=== PATIENT | male | born 1955 | race Caucasian/White ===

== ENCOUNTER 2018-01-03 07:10 | Day surgery (SDC) | payer MEDICAID ==
[2018-01-03] MEDS ORDERED: DIPHENHYDRAMINE INJ 50 MG/ML VIAL ONE (07:23)
[2018-01-03] MEDS ORDERED: MEPERIDINE HCL/PF 100 MG/ML AMP ONE (07:24)
[2018-01-03] MEDS ORDERED: SIMETHICONE 40 MG/0.6 ML ML ONE (07:24)
[2018-01-03] MEDS: MIDAZOLAM HCL 5 MG/5 ML VIAL ONE ×3 (08:46→08:58)
[2018-01-03 11:48] VITALS: BP_SYST 101
== END 2018-01-03 11:25 | disposition home or self-care (01) ==
LOC: SDS 07:10 → SMU 07:10 → SDS 11:25
PROVIDERS: ATTEND Internal Medicine Gastroenterology
DX: D12.4 Benign neoplasm of descending colon (principal); K63.5 Polyp of colon; K62.1 Rectal polyp; K57.30 Diverticulosis of large intestine without perforation or abscess without bleeding; K64.8 Other hemorrhoids; Z86.010 Personal history of colon polyps; J44.9 Chronic obstructive pulmonary disease, unspecified; K76.0 Fatty (change of) liver, not elsewhere classified; Z85.828 Personal history of other malignant neoplasm of skin; Z79.899 Other long term (current) drug therapy; K21.9 Gastro-esophageal reflux disease without esophagitis; Z85.038 Personal history of other malignant neoplasm of large intestine
CPT/HCPCS: 45380; 45385; 88305; J1200; J2175; J2250; 45384

== ENCOUNTER 2018-02-14 16:57 | Inpatient (IN) | payer MEDICAID ==
[~2018-02-14] VITALS: Ht 177.8 cm; Wt 64.0 kg
[2018-02-14 17:06] VITALS: BP_SYST 103
[2018-02-14 17:52] LABS: HEMATOCRIT 27.7 % (36-54); HEMOGLOBIN 8.9 g/dL (14.0-18.0); MEAN CORPUSCULAR HEMOGLOBIN 36 pg (27-31); MEAN CORPUSCULAR HGB CONC 32 % (32-36); MEAN CORPUSCULAR VOLUME 114 fL (79.0-98.0); PLATELET COUNT (AUTO) 238 K/uL (130-430); RED BLOOD CELL COUNT(AUTO) 2.44 MIL/uL (4.2-6.2); WHITE BLOOD COUNT (AUTO) 14.5 K/uL (4.8-10.8)
[2018-02-14 17:54] LABS: CALCIUM 8.5 mg/dL (8.4-11.0); CREATININE 0.83 mg/dL (0.55-1.30)
[2018-02-14 17:57] LABS: BAND % (MANUAL) 1 % (0-6); BASOPHILS % (MANUAL) 0 % (0-2); EOSINOPHILS % (MANUAL) 0 % (0-7); LYMPHOCYTES % (MANUAL) 16 % (20-46); METAMYELOCYTES % 2 % (0-0); MONOCYTES % (MANUAL) 3 % (0-11); POTASSIUM 2.4 mmol/L (3.5-5.1)
[2018-02-14 17:58] LABS: INR 1.3 (0.80-1.20); PROTHROMBIN TIME 13.4 SECS (9.5-12.5)
[2018-02-14 18:05] LABS: ALBUMIN 2.2 g/dL (3.4-4.8)
[2018-02-14] MEDS ORDERED: KCL 20 mEq in 100 mL (PREMIX) 100 ML IV ONE ×2 (18:45→23:13)
[2018-02-14] MEDS ORDERED: IPRATROPIUM/ALBUTEROL SULFATE 3 ML AMPUL.NEB (DUONEB) INH PRN (19:45)
[2018-02-14] MEDS ORDERED: NACL 0.9% 1,000 ML IV ONE (19:45)
[2018-02-14] MEDS ORDERED: ONDANSETRON HCL 4 MG/2 ML VIAL IVP PRN (19:45)
[2018-02-14] MEDS ORDERED: KCL 20 mEq in NS 1000 mL 1,000 ML IV ONE (19:45)
[2018-02-14] MEDS ORDERED: KCL 40 mEq in 100 mL (PREMIX) 100 ML IV ONE (19:45)
[2018-02-14] MEDS ORDERED: ACETAMINOPHEN 325 MG TABLET PO PRN (19:45)
[2018-02-14] MEDS ORDERED: TRAZ-123 PO (19:50)
[2018-02-14] MEDS ORDERED: NICO-680 TD (19:50)
[2018-02-14] MEDS ORDERED: FAMO20TA8 PO (19:50)
[2018-02-14] MEDS ORDERED: FLUT16SP16 NS (19:50)
[2018-02-14] MEDS ORDERED: IPRA3AMP9 INH (19:50)
[2018-02-14] MEDS ORDERED: MONT10TA25 PO (19:50)
[2018-02-14] MEDS ORDERED: UMEC62.5 IH (19:50)
[2018-02-14] MEDS ORDERED: KCL 20 mEq in 100 mL (PREMIX) 100 ML IV SCH (20:15)
[2018-02-14 20:53] VITALS: BP_SYST 108
[2018-02-14 23:40] VITALS: BP_SYST 108
[2018-02-15] MEDS ORDERED: NACL 0.9% 1,000 ML IV ONE (00:30)
[2018-02-15] MEDS ORDERED: PIPERACILLIN/TAZOBACTAM 3.375 GM/VIAL (ZOSYN) IV ONE (00:55)
[2018-02-15] MEDS ORDERED: PIPERACILLIN/TAZO 3.375/DEX-IS 50 ML IV SCH (01:00)
[2018-02-15 01:52] VITALS: BP_SYST 110
[2018-02-15 02:24] LABS: BILIRUBIN,URINE 1+ (NEGATIVE); BLOOD, URINE 2+ (NEGATIVE); CLARITY/URINE CLEAR (CLEAR); COLOR,URINE YELLOW (YELLOW); GLUCOSE,URINE NEGATIVE (NEGATIVE); KETONES,URINE TRACE (NEGATIVE); LEUKOCYTE ESTERASE ,URINE NEGATIVE (NEGATIVE); NITRITE, URINE NEGATIVE (NEGATIVE); PH,URINE 6.5 (5.0-8.0); PROTEIN URINE NEGATIVE (NEGATIVE)
[2018-02-15 03:33] LABS: BACTERIA,URINE FEW /HPF (None Seen); WBC,URINE 0-3 /HPF (0-3)
[2018-02-15] MEDS: PIPERACILLIN/TAZO 3.375/DEX-IS 50 ML IV SCH ×4 (06:52→23:44)
[2018-02-15 07:00] LABS: BASOPHILS % (AUTO) 0.2 % (0.0-2.0); EOSINOPHILS % (AUTO) 0.4 % (0.0-4.0); LYMPHOCYTES # (AUTO) 1.8 K/uL (1.0-5.5); LYMPHOCYTES % (AUTO) 18.7 % (20.5-51.5); MEAN CORPUSCULAR HEMOGLOBIN 38 pg (27-31); MEAN CORPUSCULAR HGB CONC 34 % (32-36); MEAN CORPUSCULAR VOLUME 112 fL (79.0-98.0); MONOCYTES # (AUTO) 0.8 K/uL (0.0-1.0); MONOCYTES % (AUTO) 8.1 % (1.7-9.3); NEUTROPHILS # (AUTO) 6.8 K/uL (1.8-7.7); NEUTROPHILS % (AUTO) 72.6 % (40.0-70.0); PLATELET COUNT (AUTO) 159 K/uL (130-430); RED CELL DISTRIBUTION WIDTH 16.4 % (9.0-15.0); WHITE BLOOD COUNT (AUTO) 9.4 K/uL (4.8-10.8)
[2018-02-15 07:13] LABS: CALCIUM 7.1 mg/dL (8.4-11.0); CREATININE 0.74 mg/dL (0.55-1.30); RED BLOOD CELL COUNT(AUTO) 1.84 MIL/uL (4.2-6.2)
[2018-02-15 07:18] LABS: HEMATOCRIT 20.6 % (36-54); HEMOGLOBIN 6.9 g/dL (14.0-18.0)
[2018-02-15 07:22] LABS: ALBUMIN 1.6 g/dL (3.4-4.8); TOTAL BILIRUBIN 2.8 mg/dL (0.0-1.0)
[2018-02-15 07:32] LABS: POTASSIUM 2.2 mmol/L (3.5-5.1)
[2018-02-15 08:00] VITALS: BP_SYST 112
[2018-02-15] MEDS: POTASSIUM CHLORIDE 40 MEQ in NS 250 ML IV SCH ×2 (08:55→14:14)
[2018-02-15] MEDS ORDERED: traZODone HCL 50 MG TABLET (DESYREL) PO SCH (09:00)
[2018-02-15] MEDS ORDERED: NON-FORMULARY MEDICATION MC SCH (09:00)
[2018-02-15] MEDS: FLUTICASONE PROPIONATE 50 mCg/SPRAY 16 GM NS SCH (09:00)
[2018-02-15 09:19] LABS: HEMATOCRIT 20.6 % (36-54)
[2018-02-15] MEDS ORDERED: LIPASE/PROTEASE/AMYLASE 1 CAP PO ONE (10:00)
[2018-02-15] MEDS: PANTOPRAZOLE SODIUM 40 MG/VIAL (PROTONIX) IVP SCH (10:02)
[2018-02-15] MEDS: FAMOTIDINE 20 MG TABLET PO SCH (10:03)
[2018-02-15] MEDS: MORPHINE 4 MG/ML INJ. SYRINGE IVP PRN ×2 (10:03→22:02)
[2018-02-15] MEDS: NICOTINE 7 MG/24 HR PATCH.TD24 TD SCH (10:16)
[2018-02-15 10:37] LABS: TOTAL IRON BIND. CAPACITY 120 ug/dL (250-450)
[2018-02-15 12:00] VITALS: BP_SYST 108
[2018-02-15 16:00] VITALS: BP_SYST 105
[2018-02-15] MEDS: MONTELUKAST 10 MG TABLET PO SCH (17:52)
[2018-02-15] MEDS: LIPASE/PROTEASE/AMYLASE 1 CAP PO SCH (17:53)
[2018-02-15 20:00] VITALS: BP_SYST 115
[2018-02-15 20:48] LABS: INR 1.6 (0.80-1.20); PROTHROMBIN TIME 15.7 SECS (9.5-12.5)
[2018-02-15] MEDS ORDERED: KCL 40 mEq in 100 mL (PREMIX) 100 ML IV ONE ×2 (21:15→21:42)
[2018-02-15] MEDS ORDERED: MAGNESIUM SULFATE 50 ML IV ONE (21:15)
[2018-02-15] MEDS ORDERED: POTASSIUM CHLORIDE 40 MEQ in NS 250 ML IV ONE (21:30)
[2018-02-15 23:51] VITALS: BP_SYST 110
[2018-02-16] MEDS: MORPHINE 4 MG/ML INJ. SYRINGE IVP PRN ×3 (02:22→17:15)
[2018-02-16] MEDS: PIPERACILLIN/TAZO 3.375/DEX-IS 50 ML IV SCH (05:02)
[2018-02-16 07:14] LABS: BASOPHILS # (AUTO) 0.1 K/uL (0.0-0.2); BASOPHILS % (AUTO) 0.5 % (0.0-2.0); EOSINOPHILS # (AUTO) 0.1 K/uL (0.0-0.4); EOSINOPHILS % (AUTO) 0.9 % (0.0-4.0); HEMATOCRIT 30.3 % (36-54); HEMOGLOBIN 10.3 g/dL (14.0-18.0); LYMPHOCYTES # (AUTO) 2.3 K/uL (1.0-5.5); LYMPHOCYTES % (AUTO) 21.5 % (20.5-51.5); MEAN CORPUSCULAR HEMOGLOBIN 36 pg (27-31); MEAN CORPUSCULAR HGB CONC 34 % (32-36); MEAN CORPUSCULAR VOLUME 106 fL (79.0-98.0); MONOCYTES # (AUTO) 0.7 K/uL (0.0-1.0); MONOCYTES % (AUTO) 6.3 % (1.7-9.3); NEUTROPHILS # (AUTO) 7.7 K/uL (1.8-7.7); NEUTROPHILS % (AUTO) 70.8 % (40.0-70.0); PLATELET COUNT (AUTO) 165 K/uL (130-430); RED BLOOD CELL COUNT(AUTO) 2.86 MIL/uL (4.2-6.2); RED CELL DISTRIBUTION WIDTH 19.9 % (9.0-15.0); WHITE BLOOD COUNT (AUTO) 10.9 K/uL (4.8-10.8)
[2018-02-16 08:00] VITALS: BP_SYST 119
[2018-02-16 08:19] LABS: TOTAL IRON BIND. CAPACITY 109 ug/dL (250-450)
[2018-02-16 08:33] LABS: ALBUMIN 1.8 g/dL (3.4-4.8); CALCIUM 7.4 mg/dL (8.4-11.0); CREATININE 0.8 mg/dL (0.55-1.30); POTASSIUM 3.3 mmol/L (3.5-5.1); TOTAL BILIRUBIN 2.3 mg/dL (0.0-1.0)
[2018-02-16] MEDS: LIPASE/PROTEASE/AMYLASE 1 CAP PO SCH ×3 (08:39→17:10)
[2018-02-16] MEDS: NICOTINE 7 MG/24 HR PATCH.TD24 TD SCH (08:39)
[2018-02-16] MEDS: PANTOPRAZOLE SODIUM 40 MG/VIAL (PROTONIX) IVP SCH (08:39)
[2018-02-16] MEDS: FLUTICASONE PROPIONATE 50 mCg/SPRAY 16 GM NS SCH (08:39)
[2018-02-16] MEDS: FAMOTIDINE 20 MG TABLET PO SCH (08:39)
[2018-02-16] MEDS ORDERED: POTASSIUM CHLORIDE 20 MEQ/PKT PACKET PO ONE (09:45)
[2018-02-16] MEDS: FUROSEMIDE 20 MG TABLET PO SCH ×2 (09:45→21:01)
[2018-02-16] MEDS ORDERED: FUROSEMIDE 40 MG/4 ML VIAL IVP ONE (09:45)
[2018-02-16] MEDS ORDERED: MAGNESIUM SULFATE 3 GM in D5W 100 ML IV ONE (10:00)
[2018-02-16] MEDS: cefTRIAXone 1 GM IVPB PREMIX 50 ML IV SCH (10:30)
[2018-02-16] MEDS: SPIRONOLACTONE 25 MG TABLET (ALDACTONE) PO SCH (10:32)
[2018-02-16 12:00] VITALS: BP_SYST 104
[2018-02-16 17:07] VITALS: BP_SYST 109
[2018-02-16] MEDS: MONTELUKAST 10 MG TABLET PO SCH (17:10)
[2018-02-16] MEDS: traZODone HCL 50 MG TABLET (DESYREL) PO SCH (21:00)
[2018-02-16 21:02] VITALS: BP_SYST 127
[2018-02-16 23:02] LABS: COLLECTION TIME,URINE 24 HR
[2018-02-16 23:03] LABS: TOTAL VOLUME 24HRS,URINE 3000 mL
[2018-02-16 23:05] LABS: POTASSIUM TIMED,URINE 9 mmol/L (12-75); POTASSIUM U,24HR CALC 27 mmol/24H (25-150)
[2018-02-16 23:18] VITALS: BP_SYST 92
[2018-02-17 07:07] LABS: BASOPHILS # (AUTO) 0.1 K/uL (0.0-0.2); BASOPHILS % (AUTO) 1.2 % (0.0-2.0); EOSINOPHILS # (AUTO) 0.1 K/uL (0.0-0.4); HEMOGLOBIN 9.2 g/dL (14.0-18.0); LYMPHOCYTES # (AUTO) 1.6 K/uL (1.0-5.5); LYMPHOCYTES % (AUTO) 18.6 % (20.5-51.5); MEAN CORPUSCULAR HEMOGLOBIN 36 pg (27-31); MEAN CORPUSCULAR HGB CONC 34 % (32-36); MEAN CORPUSCULAR VOLUME 106 fL (79.0-98.0); MONOCYTES # (AUTO) 0.5 K/uL (0.0-1.0); MONOCYTES % (AUTO) 5.3 % (1.7-9.3); NEUTROPHILS # (AUTO) 6.5 K/uL (1.8-7.7); PLATELET COUNT (AUTO) 153 K/uL (130-430); RED BLOOD CELL COUNT(AUTO) 2.54 MIL/uL (4.2-6.2); RED CELL DISTRIBUTION WIDTH 19.5 % (9.0-15.0); WHITE BLOOD COUNT (AUTO) 8.8 K/uL (4.8-10.8)
[2018-02-17 07:57] LABS: ALBUMIN 1.5 g/dL (3.4-4.8); CALCIUM 7.5 mg/dL (8.4-11.0); CREATININE 0.71 mg/dL (0.55-1.30); POTASSIUM 3.3 mmol/L (3.5-5.1); TOTAL BILIRUBIN 1.7 mg/dL (0.0-1.0)
[2018-02-17 08:30] VITALS: BP_SYST 87
[2018-02-17] MEDS ORDERED: POTASSIUM CHLORIDE 20 MEQ TAB.PRT.SR PO ONE (08:30)
[2018-02-17] MEDS ORDERED: MAGNESIUM SULFATE 3 GM in D5W 100 ML IV ONE (08:30)
[2018-02-17] MEDS: FLUTICASONE PROPIONATE 50 mCg/SPRAY 16 GM NS SCH (08:58)
[2018-02-17] MEDS: LIPASE/PROTEASE/AMYLASE 1 CAP PO SCH ×3 (08:58→17:21)
[2018-02-17] MEDS: PANTOPRAZOLE SODIUM 40 MG/VIAL (PROTONIX) IVP SCH (08:58)
[2018-02-17] MEDS: NICOTINE 7 MG/24 HR PATCH.TD24 TD SCH (08:59)
[2018-02-17] MEDS: FUROSEMIDE 20 MG TABLET PO SCH ×2 (09:00→20:32)
[2018-02-17] MEDS: SPIRONOLACTONE 25 MG TABLET (ALDACTONE) PO SCH (09:00)
[2018-02-17 09:13] VITALS: BP_SYST 92
[2018-02-17] MEDS: cefTRIAXone 1 GM IVPB PREMIX 50 ML IV SCH (09:13)
[2018-02-17] MEDS: MORPHINE 4 MG/ML INJ. SYRINGE IVP PRN ×2 (09:23→21:17)
[2018-02-17 09:29] VITALS: BP_SYST 99
[2018-02-17 12:46] LABS: NEUTROPHILS % (AUTO) 73.9 % (40.0-70.0)
[2018-02-17 13:10] VITALS: BP_SYST 106
[2018-02-17 16:34] VITALS: BP_SYST 102
[2018-02-17] MEDS: MONTELUKAST 10 MG TABLET PO SCH (17:21)
[2018-02-17 19:52] VITALS: BP_SYST 109
[2018-02-17] MEDS: traZODone HCL 50 MG TABLET (DESYREL) PO SCH (20:30)
[2018-02-18 02:03] VITALS: BP_SYST 101
[2018-02-18 06:08] LABS: FOLATE (FOLIC ACID) 6.4 ng/mL (>3.0)
[2018-02-18 07:39] LABS: ALBUMIN 1.5 g/dL (3.4-4.8); CREATININE 0.68 mg/dL (0.55-1.30); POTASSIUM 4.1 mmol/L (3.5-5.1); TOTAL BILIRUBIN 1.3 mg/dL (0.0-1.0)
[2018-02-18 08:00] VITALS: BP_SYST 100
[2018-02-18] MEDS ORDERED: MAGNESIUM SULFATE 1 GM/2 ML VIAL IVP ONE (08:00)
[2018-02-18] MEDS ORDERED: MAGNESIUM SUL 2 GM/50 ML PREMIX IV ONE (08:30)
[2018-02-18] MEDS: BENZOCAINE/MENTHOL 1 EACH LOZENGE MM PRN ×2 (08:45→18:13)
[2018-02-18] MEDS: LIPASE/PROTEASE/AMYLASE 1 CAP PO SCH ×3 (08:45→17:20)
[2018-02-18] MEDS: PANTOPRAZOLE SODIUM 40 MG/VIAL (PROTONIX) IVP SCH (08:45)
[2018-02-18] MEDS: FLUTICASONE PROPIONATE 50 mCg/SPRAY 16 GM NS SCH (08:46)
[2018-02-18] MEDS: SPIRONOLACTONE 25 MG TABLET (ALDACTONE) PO SCH (09:00)
[2018-02-18] MEDS: FUROSEMIDE 20 MG TABLET PO SCH ×2 (09:00→21:00)
[2018-02-18] MEDS: NICOTINE 7 MG/24 HR PATCH.TD24 TD SCH (09:00)
[2018-02-18] MEDS: MORPHINE 4 MG/ML INJ. SYRINGE IVP PRN ×3 (09:00→21:07)
[2018-02-18] MEDS: cefTRIAXone 1 GM IVPB PREMIX 50 ML IV SCH (10:27)
[2018-02-18 12:43] VITALS: BP_SYST 100
[2018-02-18 13:09] LABS: HAPTOGLOBIN 153 mg/dL (34-200)
[2018-02-18 14:56] LABS: FERRITIN 850 ng/mL (30-400)
[2018-02-18 16:41] VITALS: BP_SYST 113
[2018-02-18] MEDS: MONTELUKAST 10 MG TABLET PO SCH (17:20)
[2018-02-18 20:55] VITALS: BP_SYST 108
[2018-02-18] MEDS: traZODone HCL 50 MG TABLET (DESYREL) PO SCH (21:40)
[2018-02-19 01:13] VITALS: BP_SYST 98
[2018-02-19 06:39] LABS: BASOPHILS # (AUTO) 0.1 K/uL (0.0-0.2); BASOPHILS % (AUTO) 0.6 % (0.0-2.0); EOSINOPHILS # (AUTO) 0.1 K/uL (0.0-0.4); EOSINOPHILS % (AUTO) 1.1 % (0.0-4.0); LYMPHOCYTES # (AUTO) 1.9 K/uL (1.0-5.5); LYMPHOCYTES % (AUTO) 19.8 % (20.5-51.5); MEAN CORPUSCULAR HEMOGLOBIN 35 pg (27-31); MEAN CORPUSCULAR HGB CONC 32 % (32-36); MEAN CORPUSCULAR VOLUME 109 fL (79.0-98.0); MONOCYTES % (AUTO) 10.5 % (1.7-9.3); NEUTROPHILS # (AUTO) 6.7 K/uL (1.8-7.7); PLATELET COUNT (AUTO) 161 K/uL (130-430); RED BLOOD CELL COUNT(AUTO) 2.56 MIL/uL (4.2-6.2); WHITE BLOOD COUNT (AUTO) 9.8 K/uL (4.8-10.8)
[2018-02-19 07:39] LABS: CALCIUM 7.9 mg/dL (8.4-11.0); CREATININE 0.73 mg/dL (0.55-1.30); POTASSIUM 4.2 mmol/L (3.5-5.1)
[2018-02-19 07:54] LABS: ALBUMIN 1.4 g/dL (3.4-4.8); TOTAL BILIRUBIN 1.2 mg/dL (0.0-1.0)
[2018-02-19 08:10] VITALS: BP_SYST 102
[2018-02-19] MEDS: FLUTICASONE PROPIONATE 50 mCg/SPRAY 16 GM NS SCH (08:42)
[2018-02-19] MEDS: PANTOPRAZOLE SODIUM 40 MG/VIAL (PROTONIX) IVP SCH (08:42)
[2018-02-19] MEDS: LIPASE/PROTEASE/AMYLASE 1 CAP PO SCH ×3 (08:42→17:00)
[2018-02-19] MEDS: NICOTINE 7 MG/24 HR PATCH.TD24 TD SCH (08:43)
[2018-02-19] MEDS: BENZOCAINE/MENTHOL 1 EACH LOZENGE MM PRN ×2 (08:49→17:04)
[2018-02-19] MEDS: MORPHINE 4 MG/ML INJ. SYRINGE IVP PRN ×2 (08:51→17:06)
[2018-02-19] MEDS: SPIRONOLACTONE 25 MG TABLET (ALDACTONE) PO SCH (09:00)
[2018-02-19] MEDS: FUROSEMIDE 20 MG TABLET PO SCH ×2 (09:00→20:51)
[2018-02-19] MEDS: cefTRIAXone 1 GM IVPB PREMIX 50 ML IV SCH (10:12)
[2018-02-19 12:51] VITALS: BP_SYST 103
[2018-02-19] MEDS ORDERED: MAGNESIUM SULFATE 50 ML IV ONE (13:30)
[2018-02-19] MEDS: MONTELUKAST 10 MG TABLET PO SCH (17:00)
[2018-02-19 18:31] VITALS: BP_SYST 98
[2018-02-19 19:15] VITALS: BP_SYST 99
[2018-02-19] MEDS: traZODone HCL 50 MG TABLET (DESYREL) PO SCH (20:51)
[2018-02-19 23:09] VITALS: BP_SYST 92
[2018-02-20] MEDS: BENZOCAINE/MENTHOL 1 EACH LOZENGE MM PRN (03:56)
[2018-02-20] MEDS: MORPHINE 4 MG/ML INJ. SYRINGE IVP PRN ×2 (04:02→09:46)
[2018-02-20] MEDS: FUROSEMIDE 20 MG TABLET PO SCH (09:00)
[2018-02-20] MEDS: NICOTINE 7 MG/24 HR PATCH.TD24 TD SCH (09:00)
[2018-02-20] MEDS ORDERED: SPIR50TA PO (09:31)
[2018-02-20] MEDS ORDERED: AMYL1CAP54 PO (09:32)
[2018-02-20] MEDS ORDERED: PRO40 PO (09:32)
[2018-02-20] MEDS ORDERED: FURO-150 PO (09:33)
[2018-02-20] MEDS ORDERED: LACT10SO7 PO (09:34)
[2018-02-20 09:42] VITALS: BP_SYST 105
[2018-02-20] MEDS: cefTRIAXone 1 GM IVPB PREMIX 50 ML IV SCH (09:46)
[2018-02-20] MEDS: PANTOPRAZOLE SODIUM 40 MG/VIAL (PROTONIX) IVP SCH (09:46)
[2018-02-20] MEDS: FLUTICASONE PROPIONATE 50 mCg/SPRAY 16 GM NS SCH (09:47)
[2018-02-20] MEDS: LIPASE/PROTEASE/AMYLASE 1 CAP PO SCH ×3 (09:47→18:05)
[2018-02-20] MEDS: SPIRONOLACTONE 25 MG TABLET (ALDACTONE) PO SCH (09:47)
[2018-02-20 11:16] VITALS: BP_SYST 100
[2018-02-20 13:27] VITALS: BP_SYST 109
[2018-02-20 16:39] VITALS: BP_SYST 100
[2018-02-20] MEDS: MONTELUKAST 10 MG TABLET PO SCH (18:05)
== END 2018-02-20 19:30 | disposition home health service (06) | DRG 282 ==
LOC: SED 16:57 → SMU 19:31 → STU 02-15 01:21 → SMU 02-18 15:40
PROVIDERS: ADMIT Internal Medicine; ATTEND Internal Medicine
PROC: 30233N1 Transfusion of Nonautologous Red Blood Cells into Peripheral Vein, Percutaneous Approach (ICD-10-PCS; principal; 2018-02-15)
DX: K85.90 Acute pancreatitis without necrosis or infection, unspecified (principal); E43 Unspecified severe protein-calorie malnutrition; I95.9 Hypotension, unspecified; R65.10 Systemic inflammatory response syndrome (SIRS) of non-infectious origin without acute organ dysfunction; K70.31 Alcoholic cirrhosis of liver with ascites; E87.5 Hyperkalemia; E87.1 Hypo-osmolality and hyponatremia; D63.8 Anemia in other chronic diseases classified elsewhere; F17.210 Nicotine dependence, cigarettes, uncomplicated; K86.1 Other chronic pancreatitis; K86.3 Pseudocyst of pancreas; J44.9 Chronic obstructive pulmonary disease, unspecified; D64.9 Anemia, unspecified; F10.20 Alcohol dependence, uncomplicated; Z88.5 Allergy status to narcotic agent
CPT/HCPCS: 36415; 71045; 76705; 80053; 81000-TC; 82140-TC; 82150-TC; 82550-TC; 82607; 82728; 82746; 83010; 83540-TC; 83550-TC; 83605; 83690-TC; 83735-TC; 84132-TC; 84133-TC; 84484; 85007; 85018-TC; 85025; 85027; 85044-TC; 85610-TC; 85730-TC; 86886; 86900; 86901; 86920; 87040-TC; 87086; 93005; 94760; 96361; 96365; 97110-GP; 97116-GP; 97530-GP; 99285; C9113; G0378; J0696; J1940; J2270; J2405; J2543; J3475; J3480; J7030; J7040; J7050; J7060; P9021

== ENCOUNTER 2018-02-24 12:38 | Inpatient (IN) | payer MEDICAID ==
[~2018-02-24] VITALS: Ht 175.3 cm; Wt 64.9 kg
[~2018-02-24 12:38] MED LIST: AMYL1CAP54 PO; FAMO20TA8 PO; FLUT16SP16 NS; FURO-150 PO; IPRA3AMP9 INH; LACT10SO7 PO; MONT10TA25 PO; NICO-680 TD; PRO40 PO; SPIR50TA PO; TRAZ-123 PO; UMEC62.5 IH
--- NOTE | 2018-02-24 12:44 | NUR ---
Ana Rosa martinez in [facility] - 02/24/18 at 1248 by KOLE Pt wheeled to bed 6
[2018-02-24 12:55] VITALS: BP_SYST 87
--- NOTE | 2018-02-24 13:00 | NUR ---
Pt placed in bed 5
--- NOTE | 2018-02-24 13:05 | NUR ---
Pt complains of hypotension for the past couple weeks, states was admitted to the [facility] last week for hypotension and hypokalemia. Pt was at the PCP today for a check up and BP was 80 over something and told to come back to the ER. Pt complains of having lightheadness for the past week that comes and goes. Denies n/v, CP or SOB. No other injuries/complaints per pt or noted.
--- NOTE | 2018-02-24 13:05 | NUR ---
TINY Darling at bedside examining patient.
[2018-02-24] MEDS ORDERED: NACL 0.9% 1,000 ML IV ONE ×2 (13:15→14:30)
[2018-02-24 13:43] LABS: HEMATOCRIT 32.4 % (36-54); HEMOGLOBIN 10.8 g/dL (14.0-18.0); MEAN CORPUSCULAR HEMOGLOBIN 36 pg (27-31); MEAN CORPUSCULAR HGB CONC 33 % (32-36); MEAN CORPUSCULAR VOLUME 110 fL (79.0-98.0); RED BLOOD CELL COUNT(AUTO) 2.96 MIL/uL (4.2-6.2); WHITE BLOOD COUNT (AUTO) 15.5 K/uL (4.8-10.8)
[2018-02-24 13:44] LABS: BASOPHILS # (AUTO) 0.1 K/uL (0.0-0.2); BASOPHILS % (AUTO) 0.7 % (0.0-2.0); EOSINOPHILS # (AUTO) 0.1 K/uL (0.0-0.4); EOSINOPHILS % (AUTO) 0.8 % (0.0-4.0); LYMPHOCYTES # (AUTO) 3.2 K/uL (1.0-5.5); LYMPHOCYTES % (AUTO) 20.3 % (20.5-51.5); MONOCYTES # (AUTO) 1.3 K/uL (0.0-1.0); MONOCYTES % (AUTO) 8.3 % (1.7-9.3); NEUTROPHILS # (AUTO) 10.8 K/uL (1.8-7.7); NEUTROPHILS % (AUTO) 69.9 % (40.0-70.0); PLATELET COUNT (AUTO) 368 K/uL (130-430); RED CELL DISTRIBUTION WIDTH 18.1 % (9.0-15.0)
[2018-02-24 13:54] LABS: ANION GAP 10 (5-15); CALCIUM 8.3 mg/dL (8.4-11.0); CHLORIDE 102 mmol/L (98-107); CREATININE 0.79 mg/dL (0.55-1.30); GLUCOSE 113 mg/dL (70-99); POTASSIUM 3.8 mmol/L (3.5-5.1); SODIUM SERUM 140 mmol/L (136-145); UREA NITROGEN, BLOOD 6 mg/dL (8-21)
[2018-02-24 13:57] LABS: GFR AFRICAN AMERICAN 128 mL/min (>90)
[2018-02-24 14:02] LABS: ALANINE AMINOTRANSFERASE 31 U/L (12-78); ALBUMIN 2.1 g/dL (3.4-4.8); ASPARTATE AMINOTRANSFERASE 77 U/L (10-37); LIPASE 118 U/L (73-393); PHOSPHORUS 2.7 mg/dL (2.7-4.5); TOTAL BILIRUBIN 0.9 mg/dL (0.0-1.0)
[2018-02-24] MEDS ORDERED: PIPERACILLIN/TAZO 3.375 GM in NS 50 ML IV ONE (14:30)
[2018-02-24] MEDS ORDERED: VANCOMYCIN HCL 1,000 MG in NS 250 ML IV ONE (14:30)
[2018-02-24 14:48] LABS: BILIRUBIN,URINE NEGATIVE (NEGATIVE); BLOOD, URINE NEGATIVE (NEGATIVE); CLARITY/URINE CLEAR (CLEAR); COLOR,URINE YELLOW (YELLOW); GLUCOSE,URINE NEGATIVE (NEGATIVE); KETONES,URINE NEGATIVE (NEGATIVE); LEUKOCYTE ESTERASE ,URINE NEGATIVE (NEGATIVE); NITRITE, URINE NEGATIVE (NEGATIVE); PROTEIN URINE NEGATIVE (NEGATIVE); UROBILINOGEN,URINE 0.2 (0.2-1.0)
[2018-02-24] MEDS ORDERED: PIPERACILLIN/TAZOBACTAM 3.375 GM/VIAL (ZOSYN) IV ONE (14:49)
[2018-02-24] MEDS ORDERED: VANCOMYCIN HCL 1000 MG/VIAL IV ONE (14:49)
--- NOTE | 2018-02-24 14:57 | NUR ---
Medications given to pt, tolerated well
[2018-02-24] MEDS ORDERED: CHOL200075 PO (15:23)
[2018-02-24] MEDS ORDERED: FLUT16SP16 NS (15:23)
[2018-02-24] MEDS ORDERED: IPRA4AER INH (15:23)
--- NOTE | 2018-02-24 16:30 | NUR ---
Dr Farooq is at bedside examining patient.
--- NOTE | 2018-02-24 17:25 | NUR ---
Pt is sleeping in bed comfortably with no noted distress or discomfort.
[2018-02-24] MEDS: MONTELUKAST 10 MG TABLET PO SCH (18:11)
[2018-02-24] MEDS: NACL 0.9% 1,000 ML IV SCH ×2 (18:11→21:22)
--- NOTE | 2018-02-24 18:40 | NUR ---
Pt is eating dinner in bed with no noted distress or discomfort.
--- NOTE | 2018-02-24 19:00 | NUR ---
Pt AAOx4, denies c/o pain or discomfort, no needs verbalized at this time. B/P 97/58, NS second bolus continues to infuse to patent PIV.
--- NOTE | 2018-02-24 19:00 | NUR ---
endorsed report to Emmanuel
--- NOTE | 2018-02-24 20:03 | NUR ---
ADMISSION NOTE Received patient from ER via shanita, received report from [employer] SUPERVISOR. Patient admitted with diagnosis of DIZZINESS. Patient oriented to hospital routine, call light, toileting and safety-patient verbalized understanding.
--- NOTE | 2018-02-24 20:05 | NUR ---
Patient will be admitted to care of Dr. Farooq. Admitted to Tele unit. Will go to room 133B. Belongings list completed. Summary report printed. Bedside report given to receiving RN.
[2018-02-24 20:10] VITALS: BP_SYST 129
--- NOTE | 2018-02-24 21:00 | NUR ---
Patient ambulated to the restroom and back to bed independently without assistance. Gait is steady. Addendum: 02/25/18 at 0614 by Bonnie Cee RN Continuation of notes Patient refuses bed alarm at this time. Encouraged patient to call for assistance.
[2018-02-24] MEDS: traZODone HCL 50 MG TABLET (DESYREL) PO SCH (21:21)
--- NOTE | 2018-02-24 22:20 | NUR ---
Started new IV site on the left wrist #22g. Patient tolerated the procedure well. IV fluids running at ordered rate on the left wrist, see eMAR for details
--- NOTE | 2018-02-25 00:22 | NUR ---
Patient is currently resting comfortably in bed with eyes closed. No SOB, no acute distress, no signs of pain or facial grimacing at this time. Breathing is even and unlabored with visible chest rise and fall noted. IV site is intact, dressing clean and dry, currently infusing IVF at the ordered rate, see eMAR. Bed is locked, in the lowest position, 2x side rails up. Call light within reach.
[2018-02-25 00:26] VITALS: BP_SYST 105
--- NOTE | 2018-02-25 02:28 | NUR ---
Patient ambulated from restroom back to bed independently without assistance. Able to pull IV pole alongside himself. Gait is steady. Patient now resting comfortably in bed. No complaints at this time. Stable. Call light within reach. Encouraged patient to call.
--- NOTE | 2018-02-25 04:12 | NUR ---
Patient is sleeping, resting comfortably in bed. No SOB, no acute distress, no signs of discomfort. Breathing is even and unlabored. IVF infusing at the ordered rate, see eMAR for details. Bed locked, in the lowest position, 2x side rails up, bed alarm is on. Call light is within reach.
--- NOTE | 2018-02-25 06:13 | NUR ---
Patient is resting comfortably in bed with eyes closed. No SOB, no acute distress, no signs of pain or facial grimacing. Breathing is even and unlabored. IVF infusing at the ordered rate, see eMAR. Call light is within reach.
[2018-02-25] MEDS: NACL 0.9% 1,000 ML IV SCH ×2 (06:27→19:36)
[2018-02-25 07:30] VITALS: BP_SYST 106
--- NOTE | 2018-02-25 08:00 | NUR ---
AM NOTES Patient laying in bed awake, alert, orientedx4. No s/s of distress or SOB. IV site patent, intact, IVF running well. Bed in lowest position, call light within reach.
[2018-02-25] MEDS: FAMOTIDINE 20 MG TABLET PO SCH (08:28)
[2018-02-25] MEDS: FLUTICASONE PROPIONATE 50 mCg/SPRAY 16 GM NS SCH (09:00)
[2018-02-25 12:00] VITALS: BP_SYST 117
[2018-02-25 12:18] LABS: BASOPHILS # (AUTO) 0.1 K/uL (0.0-0.2); BASOPHILS % (AUTO) 0.5 % (0.0-2.0); EOSINOPHILS # (AUTO) 0.1 K/uL (0.0-0.4); EOSINOPHILS % (AUTO) 1.3 % (0.0-4.0); HEMATOCRIT 28.4 % (36-54); HEMOGLOBIN 9.4 g/dL (14.0-18.0); LYMPHOCYTES # (AUTO) 1.9 K/uL (1.0-5.5); LYMPHOCYTES % (AUTO) 17.1 % (20.5-51.5); MEAN CORPUSCULAR HEMOGLOBIN 36 pg (27-31); MEAN CORPUSCULAR HGB CONC 33 % (32-36); MEAN CORPUSCULAR VOLUME 108 fL (79.0-98.0); MONOCYTES # (AUTO) 0.8 K/uL (0.0-1.0); NEUTROPHILS # (AUTO) 8.4 K/uL (1.8-7.7); NEUTROPHILS % (AUTO) 74.1 % (40.0-70.0); PLATELET COUNT (AUTO) 278 K/uL (130-430); RED BLOOD CELL COUNT(AUTO) 2.62 MIL/uL (4.2-6.2); RED CELL DISTRIBUTION WIDTH 17.4 % (9.0-15.0); WHITE BLOOD COUNT (AUTO) 11.3 K/uL (4.8-10.8)
[2018-02-25 12:28] LABS: CALCIUM 7.4 mg/dL (8.4-11.0); CREATININE 0.88 mg/dL (0.55-1.30)
--- NOTE | 2018-02-25 12:35 | NUR ---
ROUNDS Patient laying in bed resting, no s/s of distress or SOB. All needs being met. Bed in lowest position, call light within reach. Family present at bedside.
[2018-02-25 12:39] LABS: ALBUMIN 1.7 g/dL (3.4-4.8); TOTAL BILIRUBIN 0.9 mg/dL (0.0-1.0)
--- NOTE | 2018-02-25 14:45 | NUR ---
WOUND CARE CONSULT Examined left forearm mass with master at armsAbdirizak.
--- NOTE | 2018-02-25 14:45 | NUR ---
Wound Evaluation: Wound Consult ordered for Low Geo Score. Patient evaluated for a low Geo score, now a 22. Patient was awake, alert, oriented, and received in a Rosey Bed with a foam mattress. Patient is able to turn in bed independently. Skin is []. Recommend reposition patient side to side only every 2 hours with pillow support. Elevate, off-load and float bilateral heels with pillows. Offload pressure areas with pillows for pressure re-distribution. Perform skin care and monitor skin integrity Q shift. Use moisture barrier cream on moisture susceptible areas QID and PRN for soiling. Place patient on a low air-loss mattress. Will continue to follow as a Geo. Addendum: 02/25/18 at 2031 by Abdirizak Montes RN Error, incomplete note. Please see note for [id number].
--- NOTE | 2018-02-25 14:46 | NUR ---
Wound Evaluation: Late note for 144 secondary to patient care. Wound Consult ordered for Low Geo Score. Patient evaluated for a low Geo score, now a 22. Patient was awake, alert, oriented, and received in a Rosey Bed with a foam mattress. Patient is able to turn in bed independently. Skin is fair. Recommend encourage and assist patient as needed with repositioning every 2 hours with pillow support. Elevate, off-load and float bilateral heels with pillows. Offload pressure areas with pillows for pressure re-distribution. Perform skin care and monitor skin integrity Q shift. Use moisture barrier cream on moisture susceptible areas QID and PRN for soiling. She has history of a pancreatic cyst/mass. Skin assessment: 1. Right lateral forearm: Mass, present on admission. No odor, scant yellow drainage. Char-mass area intact. Mass measures 2.8 cm x 2.5 cm, with 1.0 cm of tissue overgrowth. Patient reported that the mass is Squamous Cell Carcinoma, and it is supposed to be removed this Saturday. Recommend: Cleanse site with normal saline. Pat dry. Cover with foam dressing. Perform site care daily, and as needed for dressing soiling or dislodgment. Will continue to follow as a Geo.
--- NOTE | 2018-02-25 15:20 | NUR ---
AMBULATING Patient seen ambulating with steady gait around hallway.
[2018-02-25 16:00] VITALS: BP_SYST 119
[2018-02-25] MEDS: MONTELUKAST 10 MG TABLET PO SCH (18:00)
--- NOTE | 2018-02-25 19:30 | NUR ---
Initial Notes Received handoff report from offgoing nurse at the bedside. Patient is complaining of abdominal pain, offgoing nurse stated that she paged Dr Farooq already. IV site is intact, dressing clean and dry, currently infusing IVF at the ordered rate, see eMAR for details. Bed is locked, in the lowest position, 2x side rails up. Patient refuses bed alarm. Call light within reach. Encouraged patient to call for assistance.
--- NOTE | 2018-02-25 19:46 | NUR ---
CLOSING NOTES Patient laying in bed resting. No s/s of distress or SOB. IV site patent, intact. All needs met throughout shift. Bed in lowest position, call light within reach. Endorsed to slot shift manager RN.
[2018-02-25 20:00] VITALS: BP_SYST 127
[2018-02-25] MEDS: traZODone HCL 50 MG TABLET (DESYREL) PO SCH (20:05)
--- NOTE | 2018-02-25 21:04 | NUR ---
Dr Farooq called back. Informed him that the patient is complaining of abdominal pain. Dr Farooq ordered morphine 2mg IVP Q4H PRN for severe pain.
[2018-02-25] MEDS ORDERED: MORPHINE 4 MG/ML INJ. SYRINGE IVP PRN (21:15)
--- NOTE | 2018-02-25 21:19 | NUR ---
Patient is complaining of abdominal pain. Provided morphine PRN per MD order for severe pain, see eMAR for details.
--- NOTE | 2018-02-25 23:01 | NUR ---
Patient is currently resting comfortably in bed, eyes are closed. No SOB, no acute distress, no signs of pain or facial grimacing. Breathing is even and unlabored with visible chest rise and fall noted. Bed locked, in the lowest position, 2x side rails up. Call light within reach.
[2018-02-26] VITALS: BP_SYST 111
--- NOTE | 2018-02-26 00:12 | NUR ---
Patient resting comfortably in bed, awake. No SOB, no acute distress, no complaints of pain at this time. Bed is locked, in the lowest position, 2x side rails up. IVF infusing at the ordered rate, see eMAR for details. Call light is within reach. Encouraged patient to call.
--- NOTE | 2018-02-26 02:18 | NUR ---
Patient is resting comfortably in bed sleeping. No SOB, no acute distress, no signs of pain or facial grimacing. Breathing even and unlabored. IVF infusing at ordered rate, see eMAR. Call light within reach.
[2018-02-26] MEDS: NACL 0.9% 1,000 ML IV SCH (04:44)
--- NOTE | 2018-02-26 05:00 | NUR ---
Patient currently resting comfortably in bed, awake and alert. No SOB, no acute distress, no complaints of pain. Provided patient with pudding per patient request, and also oral care supplies as needed. Call light within reach. Encouraged patient to call for assistance.
--- NOTE | 2018-02-26 05:06 | NUR ---
CONSULT CONSULT CALLED FOR DR. PATHAK I SPOKE WITH CLEMENTE MAURICIO REASON FOR CONSULT: DIZZINESS / LOW B/P REQUESTING CONSULT: DR. [facility]RAL CUSTODIAN [facility]OD BANK PHONE NUMBER: [phone]
--- NOTE | 2018-02-26 06:29 | NUR ---
Patient currently resting comfortably in bed with eyes closed. No SOB, no acute distress, no signs of pain or facial grimacing. Breathing even and unlabored. Call light within reach.
--- NOTE | 2018-02-26 07:28 | NUR ---
CLOSING NOTES Handoff report given to Ellis-RN at the bedside. Patient is resting comfortably in bed, sleeping. No SOB, no acute distress, no signs of discomfort. IVF infusing at the ordered rate, see eMAR for details. Bed is locked, in the lowest position, 2x side rails up. Call light is within reach. Fall and safety precautions maintained. All needs have been met during this shift.
[2018-02-26 08:08] VITALS: BP_SYST 123
--- NOTE | 2018-02-26 08:10 | NUR ---
Initial note: Patient is alert, oriented x4, stated having mild epigastric pain when just wake up and increasing when starting to eat. Will F/U on medication for epigastric pain. On Normal Saline IVF @ 100 ml/hr infusing well via left wrist IV site, no sign of infiltration noted.
[2018-02-26] MEDS: FAMOTIDINE 20 MG TABLET PO SCH (08:43)
[2018-02-26] MEDS: FLUTICASONE PROPIONATE 50 mCg/SPRAY 16 GM NS SCH (08:45)
--- NOTE | 2018-02-26 08:46 | NUR ---
Remove Godinez catheter and Tele box as ordered. Will monitor voiding. Addendum: 02/26/18 at 0853 by Padmini Fall RN Incorrect data due to wrong patient.
--- NOTE | 2018-02-26 08:53 | NUR ---
Cardio round: Dr. Ji makes round and has new orders, including Echocardiogram.
[2018-02-26] MEDS ORDERED: FOLIC ACID 1 MG TABLET PO SCH (09:00)
[2018-02-26] MEDS ORDERED: THIAMINE HCL 100 MG TABLET PO SCH (09:00)
--- NOTE | 2018-02-26 10:25 | NUR ---
Resting: Patient is resting on bed comfortable ,still having mild abdominal pain but refuses medication at this time.
--- NOTE | 2018-02-26 13:00 | NUR ---
Ambulatory: Patient is up and walks to the bathroom well by himself , denies any dizziness.
--- NOTE | 2018-02-26 14:10 | NUR ---
Cardio clear for DC: Patient wants to go home. Call and speak to Dr. Ji . He is OK for the patient to go home.
[2018-02-26 14:35] VITALS: BP_SYST 129
--- NOTE | 2018-02-26 14:45 | NUR ---
DC order: Call and speak to Dr. Farooq regarding DC home. He has telephone ordered to DC home , continue home meds, and continue previous Home Health.
--- NOTE | 2018-02-26 15:34 | NUR ---
D/C Patient Patient given medication reconciliation form and D/C instructions. Patient verbalized understanding. MD discussed with patient the results and treatment provided. Ambulatory with steady gait for discharge to home. Patient in stable condition, ID band removed. IV catheter removed, intact and dressing applied, no active bleeding. No Rx needed. Patient educated on pain management. All belongings sent with patient.
--- NOTE | 2018-02-26 16:36 | NUR ---
DC planning: Home Health orders faxed to Andi at [facility] fax#[phone]--Andi had requested HH orders earlier today-GAYLE COLLAZO
--- NOTE | 2018-02-28 16:54 | NUR ---
Discharge Follow Up Phone Call [employer] phoned patient, . Patient stated he was feeling better. He thinks they have a handle on his low blood pressure. He has a follow up appointment with his PCP, Dr Lunsford, on 03/06/18. He will start home health services on 03/01/18 and he stated they are going to work on getting him a blood pressure cuff and showing him how to use it. Patient stated he continues to remain sober. No other questions or concerns.
== END 2018-02-26 15:25 | disposition home health service (06) | DRG 720 ==
LOC: SED 12:38 → STU 17:10
PROVIDERS: ADMIT Internal Medicine Hospice and Palliative Medicine; ATTEND Internal Medicine Hospice and Palliative Medicine
DX: A41.9 Sepsis, unspecified organism (principal); E43 Unspecified severe protein-calorie malnutrition; J18.9 Pneumonia, unspecified organism; K74.60 Unspecified cirrhosis of liver; D64.9 Anemia, unspecified; E87.6 Hypokalemia; F10.10 Alcohol abuse, uncomplicated; I10 Essential (primary) hypertension; K86.9 Disease of pancreas, unspecified; J44.9 Chronic obstructive pulmonary disease, unspecified; K21.9 Gastro-esophageal reflux disease without esophagitis; Z79.899 Other long term (current) drug therapy; F17.210 Nicotine dependence, cigarettes, uncomplicated
CPT/HCPCS: 36415; 71045; 80053; 81003; 83605; 83690-TC; 83735-TC; 83880; 84100-TC; 84484; 85025; 86301; 87040-TC; 87081; 87086; 93005; 93306; 96361; 96365; 96366; 96367; 99291; G0378; J2270; J2543; J3370; J7030

== ENCOUNTER 2018-10-09 16:20 | Inpatient (IN) | payer MEDICAID ==
[~2018-10-09] VITALS: Ht 175.3 cm; Wt 60.4 kg
[2018-10-09 16:20] VITALS: BP_SYST 82
[~2018-10-09 16:20] MED LIST changes: -AMYL1CAP54 PO; +CHOL200075 PO; -FURO-150 PO; -IPRA3AMP9 INH; +IPRA4AER INH; -LACT10SO7 PO; -PRO40 PO; -SPIR50TA PO; -TRAZ-123 PO; +TRAZ-218 PO
[2018-10-09] MEDS ORDERED: NACL 0.9% 1,000 ML IV ONE (16:36)
[2018-10-09] MEDS ORDERED: PANTOPRAZOLE SODIUM 40 MG/VIAL (PROTONIX) IVP ONE (16:45)
[2018-10-09 17:08] LABS: HEMATOCRIT 27.9 % (36-54); HEMOGLOBIN 9.5 g/dL (14.0-18.0); MEAN CORPUSCULAR HEMOGLOBIN 38 pg (27-31); MEAN CORPUSCULAR HGB CONC 34 % (32-36); MEAN CORPUSCULAR VOLUME 111 fL (79.0-98.0); PLATELET COUNT (AUTO) 124 K/uL (130-430); RED BLOOD CELL COUNT(AUTO) 2.52 MIL/uL (4.2-6.2); RED CELL DISTRIBUTION WIDTH 15.6 % (9.0-15.0); WHITE BLOOD COUNT (AUTO) 9.5 K/uL (4.8-10.8)
[2018-10-09 17:12] LABS: CALCIUM 9.1 mg/dL (8.4-11.0); CREATININE 0.92 mg/dL (0.55-1.30)
[2018-10-09 17:17] LABS: ALBUMIN 2.2 g/dL (3.4-4.8); TOTAL BILIRUBIN 1.8 mg/dL (0.0-1.0)
[2018-10-09 17:21] LABS: POTASSIUM 2.3 mmol/L (3.5-5.1)
[2018-10-09] MEDS ORDERED: POTASSIUM CHLORIDE 20 MEQ TAB.PRT.SR PO ONE (17:30)
[2018-10-09 18:11] LABS: BAND % (MANUAL) 10 % (0-6); BASOPHILS % (MANUAL) 0 % (0-2); EOSINOPHILS % (MANUAL) 3 % (0-7); LYMPHOCYTES % (MANUAL) 20 % (20-46); MONOCYTES % (MANUAL) 4 % (0-11)
[2018-10-09 18:31] LABS: BILIRUBIN,URINE 2+ (NEGATIVE); BLOOD, URINE 2+ (NEGATIVE); CLARITY/URINE CLEAR (CLEAR); COLOR,URINE YELLOW (YELLOW); GLUCOSE,URINE NEGATIVE (NEGATIVE); KETONES,URINE TRACE (NEGATIVE); LEUKOCYTE ESTERASE ,URINE NEGATIVE (NEGATIVE); NITRITE, URINE NEGATIVE (NEGATIVE); PROTEIN URINE NEGATIVE (NEGATIVE)
[2018-10-09 19:10] LABS: BACTERIA,URINE FEW /HPF (None Seen); MUCUS,URINE None Seen /LPF (None Seen); WBC,URINE 0-3 /HPF (0-3)
[2018-10-09] MEDS ORDERED: AMYL1CAP58 PO (19:18)
[2018-10-09] MEDS ORDERED: DIFL5DRO OP (19:18)
[2018-10-09] MEDS ORDERED: ONDANSETRON HCL 4 MG/2 ML VIAL IVP PRN (20:45)
[2018-10-09] MEDS ORDERED: ACETAMINOPHEN 325 MG TABLET PO PRN (20:45)
[2018-10-09 21:10] VITALS: BP_SYST 95
[2018-10-09 21:14] VITALS: BP_SYST 91
[2018-10-09] MEDS ORDERED: KCL 40 mEq in 100 mL (PREMIX) 100 ML IV SCH (22:00)
[2018-10-09] MEDS: NACL 0.9% 1,000 ML IV SCH (22:12)
[2018-10-09] MEDS ORDERED: POTASSIUM CHLORIDE 40 MEQ in 0.45% NS 250 ML IV SCH (22:15)
[2018-10-09] MEDS: MORPHINE 2 MG/ML INJ. SYRINGE IVP PRN (22:25)
[2018-10-09] MEDS ORDERED: POTASSIUM CHLORIDE 40 MEQ in NS 250 ML IV SCH (23:00)
[2018-10-09] MEDS ORDERED: KCL 40 mEq in 100 mL (PREMIX) 100 ML IV ONE (23:11)
[2018-10-10] VITALS: BP_SYST 90
[2018-10-10 04:59] LABS: ALBUMIN 1.8 g/dL (3.4-4.8); CALCIUM 8.3 mg/dL (8.4-11.0); CREATININE 0.97 mg/dL (0.55-1.30); TOTAL BILIRUBIN 1.6 mg/dL (0.0-1.0)
[2018-10-10 05:06] LABS: POTASSIUM 2.6 mmol/L (3.5-5.1)
[2018-10-10] MEDS: NACL 0.9% 1,000 ML IV SCH ×3 (05:19→20:58)
[2018-10-10] MEDS ORDERED: KCL 40 mEq in 100 mL (PREMIX) 100 ML IV ONE (06:22)
[2018-10-10 06:24] LABS: BASOPHILS % (AUTO) 0.5 % (0.0-2.0); EOSINOPHILS # (AUTO) 0.1 K/uL (0.0-0.4); EOSINOPHILS % (AUTO) 1.1 % (0.0-4.0); HEMATOCRIT 22.7 % (36-54); HEMOGLOBIN 7.7 g/dL (14.0-18.0); LYMPHOCYTES # (AUTO) 1.9 K/uL (1.0-5.5); LYMPHOCYTES % (AUTO) 30.2 % (20.5-51.5); MEAN CORPUSCULAR HEMOGLOBIN 38 pg (27-31); MEAN CORPUSCULAR HGB CONC 34 % (32-36); MEAN CORPUSCULAR VOLUME 113 fL (79.0-98.0); MONOCYTES # (AUTO) 0.5 K/uL (0.0-1.0); NEUTROPHILS # (AUTO) 3.8 K/uL (1.8-7.7); NEUTROPHILS % (AUTO) 60.2 % (40.0-70.0); PLATELET COUNT (AUTO) 93 K/uL (130-430); RED BLOOD CELL COUNT(AUTO) 2.01 MIL/uL (4.2-6.2); RED CELL DISTRIBUTION WIDTH 15.4 % (9.0-15.0); WHITE BLOOD COUNT (AUTO) 6.3 K/uL (4.8-10.8)
[2018-10-10] MEDS ORDERED: POTASSIUM CHLORIDE 20 MEQ TAB.PRT.SR PO SCH (06:30)
[2018-10-10] MEDS: MORPHINE 2 MG/ML INJ. SYRINGE IVP PRN ×3 (06:46→21:00)
[2018-10-10] MEDS ORDERED: POTASSIUM CHLORIDE 40 MEQ in NS 250 ML IV SCH (07:00)
[2018-10-10 07:46] VITALS: BP_SYST 89
[2018-10-10] MEDS: LIPASE/PROTEASE/AMYLASE 1 CAP PO SCH ×3 (08:07→20:58)
[2018-10-10] MEDS: THIAMINE HCL 100 MG TABLET PO SCH (08:07)
[2018-10-10] MEDS: NEPHROVITE, (FOLIC ACID/VITAMIN B COMP W-C 1 TAB) PO SCH (08:07)
[2018-10-10] MEDS: PANTOPRAZOLE SODIUM 40 MG/VIAL (PROTONIX) IVP SCH (08:10)
[2018-10-10] MEDS ORDERED: MAGNESIUM SULFATE 50 ML IV ONE (10:00)
[2018-10-10 16:47] VITALS: BP_SYST 100
[2018-10-10 20:45] VITALS: BP_SYST 100
[2018-10-11 00:44] VITALS: BP_SYST 120
[2018-10-11] MEDS: MORPHINE 2 MG/ML INJ. SYRINGE IVP PRN ×3 (03:03→17:54)
[2018-10-11 04:34] LABS: BASOPHILS % (AUTO) 0.4 % (0.0-2.0); EOSINOPHILS # (AUTO) 0.1 K/uL (0.0-0.4); EOSINOPHILS % (AUTO) 1.3 % (0.0-4.0); HEMATOCRIT 23.8 % (36-54); LYMPHOCYTES # (AUTO) 1.7 K/uL (1.0-5.5); LYMPHOCYTES % (AUTO) 23.8 % (20.5-51.5); MEAN CORPUSCULAR HEMOGLOBIN 38 pg (27-31); MEAN CORPUSCULAR HGB CONC 34 % (32-36); MEAN CORPUSCULAR VOLUME 113 fL (79.0-98.0); MONOCYTES # (AUTO) 0.6 K/uL (0.0-1.0); MONOCYTES % (AUTO) 8.3 % (1.7-9.3); NEUTROPHILS # (AUTO) 4.9 K/uL (1.8-7.7); NEUTROPHILS % (AUTO) 66.2 % (40.0-70.0); PLATELET COUNT (AUTO) 109 K/uL (130-430); RED CELL DISTRIBUTION WIDTH 15.5 % (9.0-15.0); WHITE BLOOD COUNT (AUTO) 7.3 K/uL (4.8-10.8)
[2018-10-11 04:42] LABS: ALBUMIN 1.7 g/dL (3.4-4.8); CALCIUM 7.9 mg/dL (8.4-11.0); CREATININE 0.99 mg/dL (0.55-1.30); POTASSIUM 3.1 mmol/L (3.5-5.1); TOTAL BILIRUBIN 1.6 mg/dL (0.0-1.0)
[2018-10-11 04:59] LABS: TOTAL IRON BIND. CAPACITY 98 ug/dL (250-450)
[2018-10-11] MEDS: NACL 0.9% 1,000 ML IV SCH ×2 (05:26→14:01)
[2018-10-11 08:00] VITALS: BP_SYST 98
[2018-10-11] MEDS: LIPASE/PROTEASE/AMYLASE 1 CAP PO SCH ×2 (08:52→14:31)
[2018-10-11] MEDS: THIAMINE HCL 100 MG TABLET PO SCH (08:52)
[2018-10-11] MEDS: PANTOPRAZOLE SODIUM 40 MG/VIAL (PROTONIX) IVP SCH (08:52)
[2018-10-11] MEDS: NEPHROVITE, (FOLIC ACID/VITAMIN B COMP W-C 1 TAB) PO SCH (08:52)
[2018-10-11] MEDS ORDERED: KCL 40 mEq in 100 mL (PREMIX) 100 ML IV ONE (09:00)
[2018-10-11] MEDS ORDERED: POTASSIUM CHLORIDE 40 MEQ in NS 250 ML IV ONE (09:15)
[2018-10-11 12:00] VITALS: BP_SYST 110
[2018-10-11] MEDS ORDERED: IPRATROPIUM BROM 0.5 MG/2.5 ML VIAL.NEB (ATROVENT) INH SCH (13:00)
[2018-10-11] MEDS ORDERED: PRO40 PO (14:16)
[2018-10-11] MEDS ORDERED: MULT-1089 PO (14:17)
[2018-10-11] MEDS ORDERED: FERR-69 PO (14:18)
[2018-10-11 15:50] VITALS: BP_SYST 130
[2018-10-11 15:52] VITALS: BP_SYST 130
== END 2018-10-11 18:20 | DRG 241 ==
LOC: SED 16:20 → STU 20:33 → SMU 10-11 09:18
PROVIDERS: ADMIT Internal Medicine; ATTEND Internal Medicine
DX: K29.70 Gastritis, unspecified, without bleeding (principal); K85.20 Alcohol induced acute pancreatitis without necrosis or infection; I95.9 Hypotension, unspecified; K86.1 Other chronic pancreatitis; K70.9 Alcoholic liver disease, unspecified; E87.6 Hypokalemia; F10.10 Alcohol abuse, uncomplicated; J44.9 Chronic obstructive pulmonary disease, unspecified; K21.9 Gastro-esophageal reflux disease without esophagitis; K62.89 Other specified diseases of anus and rectum; F17.210 Nicotine dependence, cigarettes, uncomplicated; E78.5 Hyperlipidemia, unspecified; Z91.19 Patient's noncompliance with other medical treatment and regimen; Z79.899 Other long term (current) drug therapy; Z87.442 Personal history of urinary calculi
CPT/HCPCS: 36415; 80053; 80061; 81000-TC; 82272; 82962; 83540-TC; 83550-TC; 83690-TC; 83735-TC; 85007; 85025; 85027; 96361; 96374; 99285; C9113; G0378; G0482; J2270; J2405; J3411; J3475; J3480; J7030; J7050